=== PATIENT | female | born 1955 | race African-American/Black ===

== ENCOUNTER 2017-01-26 11:12 | Inpatient (IN) | payer MEDICAID ==
[~2017-01-26] VITALS: Ht 152.4 cm; Wt 53.7 kg
[~2017-01-26 11:12] MED LIST: FOLI-43 PO; LEVO500T15 PO; OMEP20CA10 PO; PRILOSEC; THIA100T13 PO; TRAM50TA3 PO
[2017-01-26 14:59] LABS: MEAN CORPUSCULAR HEMOGLOBIN 32.5 pg (28.0-32.0); MEAN CORPUSCULAR VOLUME 104.3 fL (81.0-99.0); MEAN PLATELET VOLUME 9.4 fl (7.4-10.4); RED BLOOD CELL COUNT 2.01 mill/uL (4.2-5.4); RED CELL DISTRIBUTION WIDTH 20.6 % (11.6-14.6)
[2017-01-26 15:02] LABS: INR 1.7; PROTHROMBIN TIME 18.1 sec (9.4-11.6)
[2017-01-26 15:08] LABS: HEMOGLOBIN. 6.5 g/dL (12.0-16.0); PLATELET 42 x1000/uL (130-400)
[2017-01-26 15:10] LABS: CARBON DIOXIDE 23 mEq/L (21-32); CHLORIDE 110 mEq/L (98-107)
[2017-01-26 17:09] LABS: PLATELET ESTIMATE MARKEDLY DECREASED
[2017-01-26] MEDS: PANTOPRAZOLE SODIUM 40 MG/VIAL IV SCH (17:22)
[2017-01-26] MEDS ORDERED: HYDROCODONE/ACETAMINOPHEN 5/325MG TABLET PO PRN (18:30)
[2017-01-26] MEDS ORDERED: ACETAMINOPHEN 325MG TABLET PO PRN (18:30)
[2017-01-26] MEDS ORDERED: MAGNESIUM/ALUMINUM HYDROXIDE/SIMETHICONE 30ML UDC PO PRN (18:30)
[2017-01-26] MEDS ORDERED: ONDANSETRON HCL 4MG/2ML VIAL IV PRN (18:30)
[2017-01-26] MEDS ORDERED: IPRATROPIUM/ALBUTEROL 0.5-3(2.5)MG/3ML NEB INH PRN (18:30)
[2017-01-26] MEDS: CLONIDINE 0.1MG TABLET PO PRN (20:15)
[2017-01-26 20:48] VITALS: BP 170/86
[2017-01-26 21:12] LABS: CLARITY URINE CLEAR (CLEAR); COLOR URINE DARK YELLOW (YELLOW); GLUCOSE URINE NEGATIVE (NEGATIVE); KETONES URINE TRACE (NEGATIVE); LEUKOCYTE ESTERASE URINE NEGATIVE (NEGATIVE); NITRITE URINE NEGATIVE (NEGATIVE); OCCULT BLOOD URINE 1+ (NEGATIVE); PROTEIN URINE NEGATIVE (NEGATIVE); SPECIFIC GRAVITY URINE 1.023 (1.005-1.030)
[2017-01-26 21:28] VITALS: BP 170/86
[2017-01-26 21:32] LABS: *AMPHETAMINES SCREEN URINE NEGATIVE (NEGATIVE); *BARBITURATES SCREEN URINE NEGATIVE (NEGATIVE); *BENZODIAZEPINES SCREEN URINE NEGATIVE (NEGATIVE); *COCAINE SCREEN URINE NEGATIVE (NEGATIVE); CANNABINOID URINE SCREEN NEGATIVE (NEGATIVE); METHADONE URINE SCREEN NEGATIVE (NEGATIVE); OPIATES URINE SCREEN NEGATIVE (NEGATIVE); PHENCYCLIDINE URINE SCREEN NEGATIVE (NEGATIVE)
[2017-01-26 22:00] VITALS: BP 158/78
[2017-01-26 22:35] LABS: CREATINE KINASE 249 IU/L (26-192); CREATINE KINASE MB FRACTION 2.6 ng/mL (0.5-3.6); TROPONIN I < 0.02 ng/mL (0.00-0.04)
[2017-01-26 23:00] VITALS: BP 164/90
[2017-01-26 23:08] VITALS: BP 153/79
[2017-01-26] MEDS ORDERED: PHYTONADIONE 10MG/ML AMP SUBCUT SCH (23:30)
[2017-01-27] VITALS (17 sets, daily range): BP systolic 100–173; BP diastolic 51–98
[2017-01-27] MEDS: CLONIDINE 0.1MG TABLET PO PRN ×2 (03:27→18:08)
[2017-01-27 06:55] LABS: INR 1.8; PROTHROMBIN TIME 18.7 sec (9.4-11.6)
[2017-01-27 07:31] LABS: CARBON DIOXIDE 20 mEq/L (21-32); CHLORIDE 110 mEq/L (98-107)
[2017-01-27 07:35] LABS: CARCINO EMBRYONIC ANTIGEN 3.2 ng/ml; FERRITIN 51 ng/mL (10-291)
[2017-01-27 07:39] LABS: CREATINE KINASE 197 IU/L (26-192); CREATINE KINASE MB FRACTION 1.8 ng/mL (0.5-3.6); T4 FREE 1.72 ng/dL (0.76-1.46); TOTAL IRON BINDING CAPACITY 245 ug/dL (250-450); TROPONIN I < 0.02 ng/mL (0.00-0.04)
[2017-01-27 07:41] LABS: HEMOGLOBIN. 9.9 g/dL (12.0-16.0); MEAN CORPUSCULAR HEMOGLOBIN 31.3 pg (28.0-32.0); MEAN CORPUSCULAR VOLUME 94.5 fL (81.0-99.0); MEAN PLATELET VOLUME 9.5 fl (7.4-10.4); RED BLOOD CELL COUNT 3.17 mill/uL (4.2-5.4); RED CELL DISTRIBUTION WIDTH 20.8 % (11.6-14.6)
[2017-01-27 07:47] LABS: HEPATITIS B SURFACE ANTIGEN NEGATIVE
[2017-01-27 07:49] LABS: PLATELET 25 x1000/uL (130-400)
[2017-01-27] MEDS ORDERED: POTASSIUM CHLORIDE 20MEQ TABLET SR PO NR (08:00)
[2017-01-27 08:14] LABS: HEPATITIS B CORE AB IGM NEGATIVE
[2017-01-27 08:16] LABS: HEPATITIS A AB IGM NEGATIVE (NEGATIVE)
[2017-01-27] MEDS: PANTOPRAZOLE SODIUM 40 MG/VIAL IV SCH (09:04)
[2017-01-27] MEDS: FOLIC ACID 1MG TABLET PO SCH (09:04)
[2017-01-27 10:26] LABS: PLATELET ESTIMATE MARKEDLY DECREASED
[2017-01-27 13:20] LABS: FOLIC ACID (FOLATE) SERUM 13.5 ng/mL (>5.38)
[2017-01-27 13:31] LABS: VITAMIN B12 SERUM 1610 pg/mL (211-911)
[2017-01-27 15:08] LABS: HEMATOCRIT 27.7 % (36.0-48.0); HEMOGLOBIN 9.2 g/dL (12.0-16.0)
[2017-01-27] MEDS ORDERED: MULT-1146 PO (17:52)
[2017-01-27] MEDS ORDERED: FERR-63 PO (17:52)
[2017-01-27] MEDS ORDERED: DONE10TA43 PO (17:52)
[2017-01-27] MEDS ORDERED: vitamin B1 (17:52)
[2017-01-28] VITALS (12 sets, daily range): BP systolic 125–193; BP diastolic 68–104
[2017-01-28 07:34] LABS: HEMOGLOBIN. 9.4 g/dL (12.0-16.0); MEAN CORPUSCULAR HEMOGLOBIN 31.4 pg (28.0-32.0); MEAN PLATELET VOLUME 9.7 fl (7.4-10.4); RED BLOOD CELL COUNT 2.98 mill/uL (4.2-5.4); RED CELL DISTRIBUTION WIDTH 20.9 % (11.6-14.6)
[2017-01-28 07:47] LABS: PLATELET 31 x1000/uL (130-400)
[2017-01-28 07:58] LABS: CARBON DIOXIDE 23 mEq/L (21-32); CHLORIDE 108 mEq/L (98-107)
[2017-01-28] MEDS ORDERED: POTASSIUM CHLORIDE 20MEQ TABLET SR PO SCH (08:45)
[2017-01-28] MEDS: MULTIVITAMINS,THER W-MINERALS TABLET PO SCH (09:06)
[2017-01-28] MEDS: LISINOPRIL 10MG TABLET PO SCH (09:07)
[2017-01-28] MEDS: DONEPEZIL HCL 10MG TABLET PO SCH (09:07)
[2017-01-28] MEDS: PANTOPRAZOLE SODIUM 40 MG/VIAL IV SCH (09:08)
[2017-01-28] MEDS: FOLIC ACID 1MG TABLET PO SCH (09:08)
[2017-01-28] MEDS: CLONIDINE 0.1MG TABLET PO PRN ×2 (09:09→18:10)
[2017-01-28] MEDS: FERROUS SULFATE 325MG TABLET PO SCH (09:13)
[2017-01-28 10:13] LABS: PLATELET ESTIMATE MARKEDLY DECREASED
[2017-01-28] MEDS: CLONIDINE 0.1MG TABLET PO SCH ×2 (15:38→22:00)
[2017-01-28] MEDS ORDERED: HALOPERIDOL LACTATE 5MG/ML VIAL IM PRN (20:10)
[2017-01-28] MEDS: LORAZEPAM 0.5MG TABLET PO PRN (20:24)
[2017-01-29] VITALS (9 sets, daily range): BP systolic 138–178; BP diastolic 73–96
[2017-01-29] MEDS: CLONIDINE 0.1MG TABLET PO SCH ×3 (00:34→12:26)
[2017-01-29] MEDS: LORAZEPAM 0.5MG TABLET PO PRN (02:58)
[2017-01-29] MEDS: MULTIVITAMINS,THER W-MINERALS TABLET PO SCH (08:00)
[2017-01-29] MEDS: FOLIC ACID 1MG TABLET PO SCH (08:00)
[2017-01-29] MEDS: LISINOPRIL 10MG TABLET PO SCH (08:00)
[2017-01-29] MEDS: DONEPEZIL HCL 10MG TABLET PO SCH (08:01)
[2017-01-29] MEDS: FERROUS SULFATE 325MG TABLET PO SCH (08:01)
[2017-01-29] MEDS: PANTOPRAZOLE SODIUM 40 MG/VIAL IV SCH (08:01)
[2017-01-29] MEDS ORDERED: PROT40 PO (12:02)
[2017-01-29] MEDS ORDERED: LACTULOSE 20G/30ML UDC PO SCH (13:15)
[2017-01-29] MEDS ORDERED: POTASSIUM CHLORIDE 20MEQ TABLET SR PO SCH (13:30)
[2017-01-29 15:29] LABS: AMMONIA 55 uMol/L (<32)
== END 2017-01-29 15:20 | disposition home or self-care (01) | DRG 253 ==
LOC: ER 11:12 → 3WST 17:21 → ENRESERV 18:12 → EDBEDREQSVC 19:49
PROVIDERS: ADMIT Internal Medicine; ATTEND Internal Medicine
PROC: 30233L1 Transfusion of Nonautologous Fresh Plasma into Peripheral Vein, Percutaneous Approach (ICD-10-PCS; principal; 2017-01-29)
PROC: 30233N1 Transfusion of Nonautologous Red Blood Cells into Peripheral Vein, Percutaneous Approach (ICD-10-PCS; 2017-01-29)
PROC: 30233R1 Transfusion of Nonautologous Platelets into Peripheral Vein, Percutaneous Approach (ICD-10-PCS; 2017-01-29)
PROC: 30233K1 Transfusion of Nonautologous Frozen Plasma into Peripheral Vein, Percutaneous Approach (ICD-10-PCS; 2017-01-29)
DX: K92.2 Gastrointestinal hemorrhage, unspecified (principal); E43 Unspecified severe protein-calorie malnutrition; D61.818 Other pancytopenia; D68.4 Acquired coagulation factor deficiency; D68.9 Coagulation defect, unspecified; K85.90 Acute pancreatitis without necrosis or infection, unspecified; R18.8 Other ascites; D69.59 Other secondary thrombocytopenia; E88.09 Other disorders of plasma-protein metabolism, not elsewhere classified; B18.2 Chronic viral hepatitis C; D53.9 Nutritional anemia, unspecified; I10 Essential (primary) hypertension; F10.10 Alcohol abuse, uncomplicated; G40.909 Epilepsy, unspecified, not intractable, without status epilepticus; D62 Acute posthemorrhagic anemia; K21.9 Gastro-esophageal reflux disease without esophagitis; W01.0XXA Fall on same level from slipping, tripping and stumbling without subsequent striking against object, initial encounter; K57.90 Diverticulosis of intestine, part unspecified, without perforation or abscess without bleeding; F14.10 Cocaine abuse, uncomplicated; D75.89 Other specified diseases of blood and blood-forming organs; Y90.9 Presence of alcohol in blood, level not specified; K74.60 Unspecified cirrhosis of liver; F17.200 Nicotine dependence, unspecified, uncomplicated; M24.412 Recurrent dislocation, left shoulder; N27.0 Small kidney, unilateral; Y93.01 Activity, walking, marching and hiking; Z90.3 Acquired absence of stomach [part of]; Z85.028 Personal history of other malignant neoplasm of stomach; Z86.73 Personal history of transient ischemic attack (TIA), and cerebral infarction without residual deficits; Z90.49 Acquired absence of other specified parts of digestive tract; Z68.23 Body mass index [BMI] 23.0-23.9, adult; Z92.21 Personal history of antineoplastic chemotherapy; Z98.2 Presence of cerebrospinal fluid drainage device
CPT/HCPCS: 36415; 36430; 70450; 71010; 73030; 76705; 76770; 80048; 80053; 80305; 81001; 82140; 82378; 82550; 82553; 82607; 82728; 82746; 83540; 83550; 84439; 84443; 84484; 85014; 85018; 85025; 85044; 85610; 85730; 86705; 86709; 86803; 86850; 86900; 86920; 86945; 87340; 87536; 93005; 93970; 96374; 99285; C9113; J7040; J7050; P9016; P9034

== ENCOUNTER 2018-02-18 15:00 | Emergency (ER) | payer MEDICAID ==
[~2018-02-18] VITALS: Ht 160 cm; Wt 55.0 kg
[~2018-02-18 15:00] MED LIST changes: +DONE10TA43 PO; +FERR-63 PO; -LEVO500T15 PO; +MULT-1146 PO; +PROT40 PO; +vitamin B1
[2018-02-18 15:30] VITALS: BP 144/87
[2018-02-18 17:16] LABS: BASOPHILS % 0.1 % (0.0-2.0); EOSINOPHILS % 0.1 % (0.0-5.0); HEMATOCRIT. 33.4 % (36.0-48.0); HEMOGLOBIN. 11.1 g/dL (12.0-16.0); MEAN CORPUSCULAR HEMOGLOBIN 36.6 pg (28.0-32.0); MEAN CORPUSCULAR VOLUME 110.1 fL (81.0-99.0); MEAN PLATELET VOLUME 10.1 fl (7.4-10.4); MONOCYTES % 6.6 % (2.0-8.0); NEUTROPHILS % 84.2 % (40.0-76.0); RED BLOOD CELL COUNT 3.04 mill/uL (4.2-5.4); RED CELL DISTRIBUTION WIDTH 17.7 % (11.6-14.6)
[2018-02-18 17:21] LABS: CHLORIDE 109 mEq/L (98-107); PLATELET 36 x1000/uL (130-400)
[2018-02-18 17:27] LABS: INR 1.9; PROTHROMBIN TIME 18.7 sec (9.1-11.1)
[2018-02-18 17:34] LABS: PLATELET ESTIMATE MARKEDLY DECREASED
== END 2018-02-18 19:20 | disposition left against medical advice (07) ==
LOC: ER 15:00
DX: R11.2 Nausea with vomiting, unspecified (principal); Z85.028 Personal history of other malignant neoplasm of stomach; Z86.73 Personal history of transient ischemic attack (TIA), and cerebral infarction without residual deficits
CPT/HCPCS: 36415; 80053; 83690; 85025; 85610; 99284

== ENCOUNTER 2018-10-22 19:04 | Emergency (ER) | payer MEDICAID ==
[~2018-10-22] VITALS: Ht 154.9 cm; Wt 50.0 kg
[~2018-10-22 19:04] MED LIST changes: +OMEP2.5S2 PO; -PRILOSEC; +THIA50TA PO; -vitamin B1
[2018-10-23] MEDS ORDERED: LORAZEPAM 2MG/ML CPJ IM ONE (00:30)
[2018-10-23 01:52] LABS: HEMATOCRIT. 29.6 % (36.0-48.0); HEMOGLOBIN. 9.8 g/dL (12.0-16.0); MEAN CORPUSCULAR HEMOGLOBIN 36.8 pg (28.0-32.0); MEAN CORPUSCULAR VOLUME 111.8 fL (81.0-99.0); MEAN PLATELET VOLUME 10.5 fl (7.4-10.4); PLATELET 54 x1000/uL (130-400); RED BLOOD CELL COUNT 2.65 mill/uL (4.2-5.4)
[2018-10-23 02:04] LABS: CHLORIDE 109 mEq/L (98-107)
[2018-10-23 02:08] LABS: ETHANOL BLOOD 53 mg/dL
[2018-10-23 02:47] LABS: PLATELET ESTIMATE MARKEDLY DECREASED
[2018-10-23 06:10] VITALS: BP 126/72
== END 2018-10-23 06:20 | disposition home or self-care (01) ==
LOC: ER 22:21
DX: G93.40 Encephalopathy, unspecified (principal); R41.82 Altered mental status, unspecified; K74.60 Unspecified cirrhosis of liver; D64.9 Anemia, unspecified; Z79.899 Other long term (current) drug therapy
CPT/HCPCS: 36415; 70450; 80053; 80320; 82140; 83690; 84443; 84484; 85025; 93005; 96372; 99284; J2060; Z7610; G0480

== ENCOUNTER 2019-01-30 17:31 | Inpatient (IN) | payer MEDICAID ==
[~2019-01-30] VITALS: Ht 162.6 cm; Wt 58.7 kg
[~2019-01-30 17:31] MED LIST changes: -OMEP20CA10 PO; +OMEP20CA5 PO; -THIA50TA PO; +THIA50TA10 PO
[2019-01-30] MEDS ORDERED: SODIUM CHLORIDE 0.9% 1,000 ML IV ONE (17:45)
[2019-01-30] MEDS ORDERED: PROPOFOL 10MG/ML 100ML 100 ML IV ONE (17:45)
[2019-01-30] MEDS ORDERED: ETOMIDATE 2MG/ML 10ML VIAL IV ONE ×2 (17:45)
[2019-01-30] MEDS ORDERED: SUCCINYLCHOLINE CHLORIDE 200MG/10ML IV ONE ×2 (17:45)
[2019-01-30 18:09] LABS: BASOPHILS % 0.4 % (0.0-2.0); EOSINOPHILS % 0.2 % (0.0-5.0); HEMATOCRIT. 28.9 % (36.0-48.0); HEMOGLOBIN. 9.4 g/dL (12.0-16.0); LYMPHOCYTES % 51.5 % (20.0-50.0); MEAN CORPUSCULAR VOLUME 110.1 fL (81.0-99.0); MEAN PLATELET VOLUME 9.2 fl (7.4-10.4); MONOCYTES % 6.6 % (2.0-8.0); NEUTROPHILS % 41.3 % (40.0-76.0); RED BLOOD CELL COUNT 2.62 mill/uL (4.2-5.4); RED CELL DISTRIBUTION WIDTH 17.6 % (11.6-14.6)
[2019-01-30 18:13] LABS: PLATELET 25 x1000/uL (130-400)
[2019-01-30 18:14] LABS: CHLORIDE 111 mEq/L (98-107)
[2019-01-30 18:17] LABS: INR 1.8
[2019-01-30 18:17] LABS: CLARITY URINE CLEAR (CLEAR); COLOR URINE YELLOW (YELLOW); KETONES URINE TRACE (NEGATIVE); LEUKOCYTE ESTERASE URINE NEGATIVE (NEGATIVE); NITRITE URINE NEGATIVE (NEGATIVE); OCCULT BLOOD URINE 3+ (NEGATIVE); PH URINE 5.5 (4.5-8.0); PROTEIN URINE 2+ (NEGATIVE); SPECIFIC GRAVITY URINE 1.013 (1.005-1.030)
[2019-01-30 18:18] LABS: ETHANOL BLOOD 266 mg/dL
[2019-01-30 18:38] LABS: *AMPHETAMINES SCREEN URINE NEGATIVE (NEGATIVE); *BARBITURATES SCREEN URINE NEGATIVE (NEGATIVE); *BENZODIAZEPINES SCREEN URINE NEGATIVE (NEGATIVE); *COCAINE SCREEN URINE NEGATIVE (NEGATIVE)
[2019-01-30 18:39] LABS: CANNABINOID URINE SCREEN NEGATIVE (NEGATIVE); METHADONE URINE SCREEN NEGATIVE (NEGATIVE); OPIATES URINE SCREEN NEGATIVE (NEGATIVE); PHENCYCLIDINE URINE SCREEN NEGATIVE (NEGATIVE)
[2019-01-30 18:55] LABS: BG BASE EXCESS -7.7 mmol/L (-2.0-2.0); BG CARBOXYHEMOGLOBIN 0.3 % (0.5-1.5); BG DEOXYHEMOGLOBIN 0.2 % (0.0-5.0); BG FRACTION INSPIRED OXYGEN 100; BG METHEMOGLOBIN 0.4 % (0.0-1.5); BG OXYGEN SATURATION 99.8 % (92.0-98.5); BG OXYHEMOGLOBIN 99.1 % (94.0-97.0); BG PCO2 26.9 mmHg (35.0-45.0); BG PH 7.393 (7.350-7.450); BG PO2 557.8 mmHg (75.0-100.0); BG SAMPLE SITE RIGHT RADIAL; BG TIDAL VOLUME(mL) 450 mL; BG TOTAL HEMOGLOBIN 10.1 g/dL (12.0-18.0); BG VENT MODE VENT - A/C; BG VENT RATE 18 set
[2019-01-30] MEDS ORDERED: PIPERACILLIN/TAZ 3.375G PREMIX 50 ML IV ONE (19:00)
[2019-01-30] MEDS ORDERED: SODIUM CHLORIDE 0.9% 1000ML BAG (SEPSIS BOLUS) IV ONE (19:00)
[2019-01-30] MEDS ORDERED: VANCOMYCIN 1 G PREMIX 200 ML IV ONE (19:00)
[2019-01-30 19:04] LABS: PLATELET ESTIMATE MARKEDLY DECREASED
[2019-01-30] MEDS ORDERED: LEVETIRACETAM 500MG PREMIX 100 ML IV NR (20:45)
[2019-01-30] MEDS ORDERED: DEXAMETHASONE 10 MG/ML VIAL IV NR (20:45)
[2019-01-30] MEDS ORDERED: NICARDIPINE 100 MG in SODIUM CHLORIDE 0.9% 60 ML IV ONE (21:00)
[2019-01-30] MEDS ORDERED: ONDANSETRON HCL 4MG/2ML INJ IV PRN (21:30)
[2019-01-30] MEDS ORDERED: LORAZEPAM 2MG/ML CPJ IV PRN (21:30)
[2019-01-30] MEDS ORDERED: LEVETIRACETAM 500 MG in SODIUM CHLORIDE 0.9% 100 ML IV SCH (21:30)
[2019-01-30] MEDS ORDERED: NICARDIPINE 100 MG in SODIUM CHLORIDE 0.9% 60 ML IV NR (21:30)
[2019-01-30] MEDS ORDERED: METRONIDAZOLE 500 MG PREMIX 100 ML IV SCH (21:45)
[2019-01-30 23:15] VITALS: BP 137/61
[2019-01-30 23:30] VITALS: BP 128/56
[2019-01-30 23:45] VITALS: BP 131/55
[2019-01-30] MEDS ORDERED: NICARDIPINE 100 MG in SODIUM CHLORIDE 0.9% 60 ML IV PRN (23:45)
[2019-01-30] MEDS ORDERED: RIFA550T PO (23:55)
[2019-01-30] MEDS ORDERED: CALC-37 PO (23:55)
[2019-01-30] MEDS ORDERED: LEVE500T19 PO (23:55)
[2019-01-31] VITALS (48 sets, daily range): BP systolic 37–141; BP diastolic 20–78
[2019-01-31] MEDS ORDERED: DEXT 5%/LACTATED RINGERS 1,000 ML IV SCH ×2 (00:30)
[2019-01-31] MEDS ORDERED: SODIUM BICARBONATE 8.4% MEQ/ML 50ML VIAL IV ONE (01:00)
[2019-01-31] MEDS ORDERED: CEFEPIME 1,000 MG in DEXTROSE 5% WATER 50 ML IV SCH (01:00)
[2019-01-31] MEDS ORDERED: EPINEPHRINE 0.1MG/ML (1:10,000) 10ML SYR ONE (01:00)
[2019-01-31] MEDS ORDERED: NOREPINEPHRINE 16 MG in DEXT 5% WATER 234 ML IV PRN (01:45)
[2019-01-31] MEDS ORDERED: METRONIDAZOLE 500 MG PREMIX 100 ML IV SCH (02:00)
[2019-01-31] MEDS: IPRATROPIUM/ALBUTEROL 0.5-3(2.5)MG/3ML NEB HHN SCH ×2 (02:14→07:53)
[2019-01-31 03:15] LABS: BASOPHILS % 0.2 % (0.0-2.0); LYMPHOCYTES % 9.4 % (20.0-50.0); MEAN CORPUSCULAR HEMOGLOBIN 36.4 pg (28.0-32.0); MEAN CORPUSCULAR VOLUME 119.1 fL (81.0-99.0); MEAN PLATELET VOLUME 9.2 fl (7.4-10.4); MONOCYTES % 4.3 % (2.0-8.0); NEUTROPHILS % 86.1 % (40.0-76.0); PLATELET 105 x1000/uL (130-400); RED BLOOD CELL COUNT 1.69 mill/uL (4.2-5.4); RED CELL DISTRIBUTION WIDTH 18.8 % (11.6-14.6)
[2019-01-31 03:21] LABS: INR 1.6; PROTHROMBIN TIME 16.6 sec (9.6-11.0)
[2019-01-31 03:25] LABS: HEMATOCRIT. 20.1 % (36.0-48.0); HEMOGLOBIN. 6.1 g/dL (12.0-16.0)
[2019-01-31 03:55] LABS: CHLORIDE 113 mEq/L (98-107)
[2019-01-31] MEDS ORDERED: VANCOMYCIN 1250MG in DEXTROSE 5% WATER 250ML IV SCH (05:00)
[2019-01-31 05:17] LABS: HEPATITIS B SURFACE ANTIGEN NEGATIVE
[2019-01-31 05:47] LABS: HEPATITIS A AB IGM NEGATIVE (NEGATIVE)
[2019-01-31] MEDS ORDERED: DEXAMETHASONE 4MG/ML 1ML VIAL IV SCH (06:00)
[2019-01-31 06:53] LABS: PHOSPHORUS 5.2 mg/dL (2.5-4.9)
[2019-01-31] MEDS ORDERED: POTASSIUM CHLORIDE INJ 40 MEQ in DEXT 5% WATER 500 ML IV ONE (07:00)
[2019-01-31] MEDS ORDERED: LEVETIRACETAM 500 MG in SODIUM CHLORIDE 0.9% 100 ML IV SCH (09:00)
[2019-01-31] MEDS ORDERED: VANCOMYCIN 1 G PREMIX 200 ML IV SCH (21:00)
== END 2019-01-31 12:06 | disposition expired | DRG 44 ==
LOC: ER 17:31 → MICUSO 20:46 → EDBEDREQ 21:22 → EDBEDREQTM 21:22 → EDBEDREQ 21:56 → ENRESERV 22:49
PROVIDERS: ADMIT Internal Medicine; ATTEND Internal Medicine
PROC: 5A1935Z Respiratory Ventilation, Less than 24 Consecutive Hours (ICD-10-PCS; 2019-01-30)
PROC: 0BH17EZ Insertion of Endotracheal Airway into Trachea, Via Natural or Artificial Opening (ICD-10-PCS; 2019-01-30)
PROC: 30233K1 Transfusion of Nonautologous Frozen Plasma into Peripheral Vein, Percutaneous Approach (ICD-10-PCS; 2019-01-30)
PROC: 30233R1 Transfusion of Nonautologous Platelets into Peripheral Vein, Percutaneous Approach (ICD-10-PCS; 2019-01-30)
PROC: 5A12012 Performance of Cardiac Output, Single, Manual (ICD-10-PCS; principal; 2019-01-31)
DX: I61.5 Nontraumatic intracerebral hemorrhage, intraventricular (principal); J96.00 Acute respiratory failure, unspecified whether with hypoxia or hypercapnia; G93.5 Compression of brain; I46.9 Cardiac arrest, cause unspecified; E43 Unspecified severe protein-calorie malnutrition; G91.9 Hydrocephalus, unspecified; G93.41 Metabolic encephalopathy; K85.90 Acute pancreatitis without necrosis or infection, unspecified; I60.9 Nontraumatic subarachnoid hemorrhage, unspecified; D49.0 Neoplasm of unspecified behavior of digestive system; D68.9 Coagulation defect, unspecified; D69.6 Thrombocytopenia, unspecified; Z51.5 Encounter for palliative care; Z66 Do not resuscitate; I10 Essential (primary) hypertension; B19.20 Unspecified viral hepatitis C without hepatic coma; D64.9 Anemia, unspecified; K86.1 Other chronic pancreatitis; F10.10 Alcohol abuse, uncomplicated; E87.6 Hypokalemia; E87.8 Other disorders of electrolyte and fluid balance, not elsewhere classified; G40.909 Epilepsy, unspecified, not intractable, without status epilepticus; E87.2 Acidosis; K74.60 Unspecified cirrhosis of liver; Y90.8 Blood alcohol level of 240 mg/100 ml or more; Z79.899 Other long term (current) drug therapy; Z85.028 Personal history of other malignant neoplasm of stomach; Z86.73 Personal history of transient ischemic attack (TIA), and cerebral infarction without residual deficits; Z90.49 Acquired absence of other specified parts of digestive tract; Z68.22 Body mass index [BMI] 22.0-22.9, adult
CPT/HCPCS: 36415; 36600; 71045; 74176; 80048; 80305; 80320; 81003; 82375; 82805; 82962; 83605; 83880; 84100; 84478; 84484; 86705; 86709; 86803; 86850; 86900; 86920; 86927; 87340; 93005; 93970; 94002; 94003; 94640; 99285; J0330; J0692; J1100; J1953; J2543; J2704; J3370; J3480; J3490; J7030; J7050; J7060; J7620; P9017; P9034; G0480